=== PATIENT | female | born 1955 | race Caucasian/White ===

== ENCOUNTER 2022-08-22 10:39 | Outpatient (CLI) | payer OTHER, SELFPAY ==
--- NOTE | 2022-08-22 11:00 | CRLHL7_ITS ---
For Patients: As a result of the Cures Act, medical imaging exams and procedure reports are released immediately into your electronic medical record. You may view this report before your referring provider. If you have questions, please contact your health care provider. Indication: NODE POSITIVE BREAST CA, FOLLOW UP LUNG NODULES Technique: Post contrast CT chest. 75 cc Isovue 370 intravenous contrast. Please note that all CT scans at this facility use dose modulation, iterative reconstruction, and/or weight-based dosing when appropriate to reduce radiation dose to as low as reasonably achievable. Comparison: 09/01/2021 Findings: The previously described left lower lobe nodule is no longer present. Stable benign pleural-based nodule right lower lobe measuring 5 millimeters. No suspicious pulmonary nodule. Chronic radiation pneumonitis to the anterior left upper lobe, unchanged. No intrinsic osseous lesion or fracture. Status post bilateral mastectomy. Incidental azygos fissure. No adenopathy. Hiatal hernia measuring 5.8 cm. Impression: No suspicious pulmonary nodule. Please note that all CT scans at this facility use dose modulation, iterative reconstruction, and/or weight-based dosing when appropriate to reduce radiation dose to as low as reasonably achievable. Dictated by Lex Lamb MD @ 08/22/2022 12:14:32 PM (Electronically Signed)
[2022-08-22 11:14] LABS: Creatinine* 0.6 mg/dL (0.5-1.5); Estimated Glomerular Filt Rate 98 ml/min
== END 2022-08-22 10:40 | disposition home or self-care (01) ==
PROVIDERS: PCP Family Medicine; Visit Provider Nurse Practitioner Family
DX: C50.919 Malignant neoplasm of unspecified site of unspecified female breast (principal); R91.8 Other nonspecific abnormal finding of lung field
CPT/HCPCS: 36415; 71260; 82565; Q9967

== ENCOUNTER 2022-12-20 12:56 | Outpatient (CLI) | payer OTHER, SELFPAY ==
--- NOTE | 2022-12-20 13:00 | CRLHL7_ITS ---
For Patients: As a result of the Century Cures Act, medical imaging exams and procedure reports are released immediately into your electronic medical record. You may view this report before your referring provider. If you have questions, please contact your health care provider. DXA BONE MINERAL DENSITY STUDY Current height (in): 68.0. Weight (lb): 170.0. Menopause age: 52. Ethnicity: White. 1. Have you had a previous hip or vertebral fracture? No. 2. Have you had any fractures during your adult life which did not result from significant trauma (e.g., auto accident)? No. 3. Did either of your parents have a hip fracture? No. 4. Do you smoke? No. 5. Have you ever taken Glucocorticoids? No. 6. Do you have rheumatoid arthritis? No. 7. Do you have secondary osteoporosis? No. 8. Do you drink 3 or more alcoholic drinks per day? No. 9. Are you being treated for osteoporosis? No. 10. Have you ever taken any of the following medications: Actonel, Evista, Fosamax, Miacalcin, Reclast, Boniva, Forteo, HRT (i.e. estrogen/hormone therapy), Protelos, Prolia, Vitamin D, Calcium, other ??? please specify. ANSWER: Yes, vitamin D, calcium. 11. Do you have any of the following medical conditions: Anorexia or bulimia, asthma or emphysema, end stage renal disease, hyperparathyroidism, any seizure disorders, cancer, inflammatory bowel diseases, hysterectomy, other ??? please specify. ANSWER: Yes, cancer. 12. What was your maximum height (inches)? 69. 13. Do you perform weight bearing exercise regularly? No. 14. Do you regularly consume dairy products? Yes. 15. Do you drink caffeinated beverages? Yes. 16. At what age did your period start? 13. 17. Are you premenopausal? No. 18. How many full term pregnancies have you had? 3. 19. Have you ever missed your period for more than 6 months in a row (not including or menopause)? No. TECHNIQUE: Bone mineral density study was performed using the [employer] [facility]. FINDINGS: The results of the study expressed as bone mineral density (BMD) are as follows: Lumbar spine L1, L4: BMD: 1.050 g/cm2. T-score: 0.1. Z-score: 2.1. Neck Left: BMD: 0.895 g/cm2. T-score: 0.4. Z-score: 2.1. Right: BMD: 0.848 g/cm2. T-score: 0.0. Z-score: 1.7. Total Left: BMD: 1.050 g/cm2. T-score: 0.9. Z-score: 2.3. Right: BMD: 1.031 g/cm2. T-score: 0.7. Z-score: 2.1. IMPRESSION: Normal bone density. *Comparison exams done prior to 04/2020 were performed on different unit, [facility]. COMPARISON: Compared with scan of 10/13/2020, the bone mineral density has decreased by 3.3 percent at the spine and decreased by 0.9 percent at the hip. Lex Lamb M.D. Diagnostic Radiologist [email or web address] LINA/tia / be/Dictated by: Lex Lamb MD @ 12/20/2022 1:36:00 PM (Electronically Signed)
== END 2022-12-20 12:57 | disposition home or self-care (01) ==
LOC: RAD 12:57
PROVIDERS: PCP Family Medicine; Visit Provider Nurse Practitioner Family
DX: C50.919 Malignant neoplasm of unspecified site of unspecified female breast (principal); Z79.811 Long term (current) use of aromatase inhibitors
CPT/HCPCS: 77080

== ENCOUNTER 2022-12-27 11:22 | Outpatient (RCR) | payer OTHER, SELFPAY ==
[2022-12-27 12:23] LABS: Albumin* 4.4 g/dL (3.3-5.0); Chloride* 103 mmol/L (96-114)
[2022-12-27 12:24] LABS: Potassium* 3.9 mmol/L (3.6-5.1); Sodium* 139 mmol/L (135-149)
[2022-12-27 12:26] LABS: Alkaline Phosphatase* 65 U/L (40-150); Aspartate Amino Transferase* 32 U/L (12-35); Bilirubin Total* 0.6 mg/dL (0.1-1.5); Blood Urea Nitrogen* 18 mg/dL (7-30); Carbon Dioxide* 32 mmol/L (20-32); Creatinine* 0.5 mg/dL (0.5-1.5); Estimated Glomerular Filt Rate 103 ml/min; Total Protein* 7.3 g/dL (6.0-8.3)
[2022-12-27 12:27] LABS: Alanine Aminotransferase* 31 U/L (4-35); Calcium* 9.2 mg/dL (8.4-10.6); Glucose* 104 mg/dL (60-115)
--- NOTE | 2022-12-27 14:51 | ONC.NURNOTE ---
Labs drawn on 12/27/22 reviewed by Xochilt Warner CNP, results called to pt.
== END 2023-01-22 23:59 | disposition home or self-care (01) ==
LOC: CCIC 11:22
PROVIDERS: PCP Family Medicine; Visit Provider Nurse Practitioner Family
DX: C50.912 Malignant neoplasm of unspecified site of left female breast (principal); Z17.0 Estrogen receptor positive status [ER+]; Z79.811 Long term (current) use of aromatase inhibitors; Z90.13 Acquired absence of bilateral breasts and nipples; R91.8 Other nonspecific abnormal finding of lung field
CPT/HCPCS: 36415; 80053; 99212; 99214

== ENCOUNTER 2023-08-28 10:40 | Outpatient (CLI) | payer OTHER, SELFPAY ==
--- NOTE | 2023-08-28 11:00 | CRLHL7_ITS ---
For Patients: As a result of the Century Cures Act, medical imaging exams and procedure reports are released immediately into your electronic medical record. You may view this report before your referring provider. If you have questions, please contact your health care provider. CLINICAL INFORMATION: Pulmonary nodules. History of breast cancer TECHNIQUE: Contrast-enhanced CT of the chest was obtained. Coronal and sagittal reformatted images were obtained. Contrast: 75 mL of Isovue 370 intravenous contrast was injected uneventfully prior to image acquisition. Radiation Dose Estimate (Total Exam DLP): 166 mGy-cm. COMPARISON: CT chest 08/22/2022, 09/01/2021. FINDINGS: Chest: Thyroid: Unremarkable Lungs: Stable appearing streaky linear opacity extending to the pleural surface in the left upper lobe which may represent subsegmental atelectasis and/or scarring. Azygos fissure is incidentally noted. Stable appearing pleural based right lower lobe pulmonary nodule measuring up to 5 mm (series 2, image 48). No new or suspicious pulmonary nodules. Heart/Pericardium: Heart normal in size. Thoracic aorta normal in caliber patent no central filling defects within the main, left, and right pulmonary arteries. Lymph Nodes: No significant axillary, mediastinal, or hilar lymphadenopathy. Upper Abdomen: Small hiatal hernia. No acute findings in the visualized portions. Musculoskeletal: Visualized osseous structures demonstrate diffuse degenerative changes. IMPRESSION: 1. No new or suspicious pulmonary nodules. Please note that all CT scans at this facility use dose modulation, iterative reconstruction, and/or weight-based dosing when appropriate to reduce radiation dose to as low as reasonably achievable. Dictated by Rito Roblero MD @ 08/30/2023 7:51:45 AM (Electronically Signed)
[2023-08-28 11:11] LABS: Creatinine* 0.5 mg/dL (0.5-1.5); Estimated Glomerular Filt Rate 102 ml/min
== END 2023-08-28 10:41 | disposition home or self-care (01) ==
LOC: CT 10:41
PROVIDERS: PCP Family Medicine; Visit Provider Physician Assistant
DX: R91.1 Solitary pulmonary nodule (principal); K44.9 Diaphragmatic hernia without obstruction or gangrene; Z85.3 Personal history of malignant neoplasm of breast
CPT/HCPCS: 36415; 71260; 82565; Q9967

== ENCOUNTER 2023-10-21 11:00 | Outpatient (RCR) | payer OTHER, SELFPAY ==
[2023-07-25 10:22] LABS: Hematocrit 38.8 % (33.0-51.0); Hemoglobin* 12.8 gm/dL (12.0-16.0); Mean Corpuscular HGB Conc 33 gm/dL (32-36); Mean Corpuscular Hemoglobin 31 pg (26-34); Mean Corpuscular Volume 94 fL (80-100); Platelet Count* 168 K/uL (140-440); Red Blood Count 4.14 m/uL (4.00-5.20); White Blood Count* 4.04 K/uL (4.50-11.00)
[2023-07-25 10:28] LABS: Slide Review Reflex No
[2023-07-25 10:37] LABS: Albumin* 4.4 g/dL (3.3-5.0)
[2023-07-25 10:38] LABS: Chloride* 103 mmol/L (96-114); Potassium* 3.9 mmol/L (3.6-5.1); Sodium* 141 mmol/L (135-149)
[2023-07-25 10:40] LABS: Anion Gap 2 mEq/L (7-15); Bilirubin Total* 0.4 mg/dL (0.1-1.5); Carbon Dioxide* 36 mmol/L (20-32); Creatinine* 0.5 mg/dL (0.5-1.5); Estimated Glomerular Filt Rate 102 ml/min
[2023-07-25 10:41] LABS: Alanine Aminotransferase* 30 U/L (4-35); Alkaline Phosphatase* 62 U/L (40-150); Aspartate Amino Transferase* 31 U/L (12-35); Blood Urea Nitrogen* 22 mg/dL (7-30); Calcium* 9.5 mg/dL (8.4-10.6); Glucose* 92 mg/dL (60-115); Total Protein* 7.2 g/dL (6.0-8.3)
[2023-07-25 11:30] LABS: Thyroid Stimulating Hormone* 0.514 uIU/mL (0.270-4.20)
--- NOTE | 2023-09-06 11:58 | ONC.NURNOTE ---
Patient called and given recommendations after Rivka Graves reviewed CT and labs-Plan on CBC/CMP/TSH in October and follow up with provider in January Appointment made for labs
[2023-10-21 11:23] LABS: Basophils Percent Auto 1.1 % (0.0-3.0); Eosinophils Percent Auto 5.7 % (0.0-7.0); Hematocrit 39.6 % (33.0-51.0); Hemoglobin* 12.9 gm/dL (12.0-16.0); Immature Granulocytes Pct Auto 0.9 %; Lymphocytes Percent Auto 17.7 % (20-44); Mean Corpuscular HGB Conc 33 gm/dL (32-36); Mean Corpuscular Hemoglobin 31 pg (26-34); Mean Corpuscular Volume 95 fL (80-100); Neutrophils Percent Auto 67.6 % (42.0-72.0); Platelet Count* 189 K/uL (140-440); RDW Coefficient of Variation % 12.3 % (11.5-15.5); Red Blood Count 4.18 m/uL (4.00-5.20)
[2023-10-21 11:29] LABS: Slide Review Reflex No
[2023-10-21 11:31] LABS: Chloride* 100 mmol/L (96-114)
[2023-10-21 11:32] LABS: Albumin* 4.6 g/dL (3.3-5.0); Sodium* 137 mmol/L (135-149)
[2023-10-21 11:34] LABS: Creatinine* 0.5 mg/dL (0.5-1.5); Estimated Glomerular Filt Rate 102 ml/min
[2023-10-21 11:35] LABS: Alanine Aminotransferase* 29 U/L (4-35); Alkaline Phosphatase* 55 U/L (40-150); Anion Gap 7 mEq/L (7-15); Aspartate Amino Transferase* 32 U/L (12-35); Bilirubin Total* 0.6 mg/dL (0.1-1.5); Blood Urea Nitrogen* 21 mg/dL (7-30); Calcium* 9.1 mg/dL (8.4-10.6); Carbon Dioxide* 30 mmol/L (20-32); Glucose* 88 mg/dL (60-115); Total Protein* 7.4 g/dL (6.0-8.3)
== END 2024-01-21 23:59 | disposition home or self-care (01) ==
LOC: CCIC 11:00
PROVIDERS: PCP Family Medicine; Referring Provider Family Medicine; Visit Provider Physician Assistant
DX: C50.912 Malignant neoplasm of unspecified site of left female breast (principal); Z17.0 Estrogen receptor positive status [ER+]; R53.83 Other fatigue; Z79.811 Long term (current) use of aromatase inhibitors
CPT/HCPCS: 36415; 80053; 84443; 85025; 85027; 99212; 99214; 99215

== ENCOUNTER 2024-02-03 10:44 | Outpatient (RCR) | payer MEDICARE, SELFPAY | END 2024-08-01 23:59 | disposition home or self-care (01) | LOC: CCIC 10:44 | PROVIDERS: PCP Family Medicine; Referring Provider Family Medicine; Visit Provider Physician Assistant | DX: C50.912 Malignant neoplasm of unspecified site of left female breast (principal); Z17.0 Estrogen receptor positive status [ER+]; Z90.13 Acquired absence of bilateral breasts and nipples; Z79.811 Long term (current) use of aromatase inhibitors; R91.1 Solitary pulmonary nodule; R10.11 Right upper quadrant pain | CPT/HCPCS: 99214; G0463 ==